=== PATIENT | female | born 1965 | race Caucasian/White ===

== ENCOUNTER 2017-04-05 18:21 | Emergency (ER) | payer OTHER ==
[~2017-04-05] VITALS: Ht 165.1 cm; Wt 95.3 kg
[~2017-04-05 18:21] MED LIST: AMLO5TAB PO; BENAZEPRIL HYDR40 MG PO; BENICAR40 MG PO; BENZONATATE200 MG PO; CARVEDILOL 25MG25 MG PO; CHEWABLE ASPIRI81 MG PO; CLONIDINE HCL0.2 MG PO; GUAIFENESIN DM118 ML PO; HYDROCHLOROTHIA25 M1 PO; KEFLEX 500MG.500 MG PO; MEDROL 4MG. DOSE4 MG PO; METOPROLOL25 MG PO; MINOCYCLINE 10100 MG PO; Meclizine25 MG PO; NAPROSYN 500MG500 MG PO; PERCOCET 5/3251 EACH PO; PROAIR HFA0.09 MG/AC IH; ROBAXIN-750750 MG PO; SIMVASTATIN40 MG PO; TAMIFLU 75MG CA75 MG PO; UNITHROID0.088 MG; ZITHROMAX Z PA250 MG PO; ZITHROMAX Z-PA250 M2 PO
--- NOTE | 2017-04-05 18:54 | Urgent Treatment Center Report ---
History of Present Issue Date/Time Seen by Provider 04/05/17 7083 Visit Reason Pt arrived:Walked Presenting Problem:TRIPPED AT WORK A COUPLE OF WEEKS AGO AND C/O PAIN IN THE KNEE THAT GOES DOWN INTO HER CALF Location if Accident: Onset of symptoms date/time:/ or onset unknown for:MEDICAL HX UNKNOWN Have you (or family members/close friends) recently traveled outside the [place]? N If Yes, where/when: Have you had exposure to infectious disease within the past month? TB? Other? Specify: Patient state that she was at work a couple of weeks ago when she tripped on grate at work and fell State that ever since she has been having pain in her right knee that radiates down leg into calf area. States that she has been taking over the counter Medication for it and states that today it is hurting worse and she talked to them at work and they told her to come and get checked out ALLERGIES Coded Allergies: Sulfa (Sulfonamide Antibiotics) (Mild, 12/22/15) hydrocodone (Mild, 12/22/15) Home Medications Active Scripts Azithromycin (Zithromycin (Z-ROBBIE) 250MG Tab) 250 MG PO DAILY #6 TAB Prov: 08/05/16 Methylprednisolone (Medrol Dose Robbie) 4 MG PO UD #1 ROBBIE Prov: 08/05/16 GUAIFENESIN/DEXTROMETHORPHAN (Tussin Dm Cough Syrup) 10 ML PO Q6HP PRN cough #120 SYR Prov: 08/05/16 Azithromycin (Zithromax) 250 MG PO DAILY #6 TAB Prov: 12/17/16 Methylprednisolone (Medrol Dose Robbie) 4 MG PO UD #1 ROBBIE Prov: 12/17/16 Oseltamivir Phosphate (Tamiflu 75MG Capsule) 75 MG PO BID #10 CAP Prov: 08/07/16 Albuterol Sulfate (Proair Hfa) 1 PUFF IH Q6HP PRN shortness of air #1 INH Prov: 08/07/16 Benzonatate 200 MG PO Q8HP PRN cough #30 SGL Prov: 08/07/16 Reported Medications Carvedilol (Carvedilol 25MG) 25 MG PO BID HYDROCHLOROTHIAZIDE (Hydrochlorothiazide) 25 MG PO DAILY Levothyroxine Sodium (Levothyroxine (88 Mcg)) 300 DAILY Aspirin (Aspirin, Chewable) 81 MG PO DAILY Clonidine Hcl 0.2 MG PO BID #60 Benazepril Hcl (Benazepril HCl) 40 MG PO DAILY #30 Amlodipine Besylate (Amlodipine) 5 MG PO DAILY #30 Simvastatin (Simvastatin 40MG Tab) 40 MG PO DAILY #30 History Medical History General CAD? No Angina: No IN: No Hypertension? Yes Hyperlipidemia? Yes CHF? No DVT? No PE? No COPD? No Asthma? No Anemia? No GERD? No Gastric ulcers? No GI Bleed? No Hernia? No Thyroid Problems? No Hypothyroidism? No CVA? No Seizures? No Diabetes? No Renal Insuffiency? No UTI? No Stones? No BPH? No GB Disease: No Nephritic Syndrome? No Asplenia? No Hepatitis? No Sickle Cell Disease? No Arthritis? No Migraines? No Cataracts? No Glaucoma? No MRSA? No HIV? No TB? No Anxiety? No Depression? No Cancer? No Immunization HX DT/Tetanus 1-4 Years Ago Surgical Hx Previous Surgery?Y HEART CATH 2006 HYSTERECTOMY Hernia Repair Social History Smoking Hx Smoker: Current Every Day Smoker Tobacco: Yes Type Cigarettes Packs/day 1 1/2 - 2 Packs Alcohol Alcohol: No Review of Systems All Other Systems Reviewed and Negative Physical Exam Vital Signs Vital Signs Date Time Temp Pulse Resp B/P Pulse O2 O2 Flow FiO2 Ox Delivery Rate 04/05 1833 98.3 72 16 184/91 99 General Appearance normal appearance, WD/WN, no apparent distress Ear, Nose, Throat hearing grossly normal, normal ENT inspection Respiratory Status Yes: trachea midline, chest symmetrical, non tender chest. No: respiratory distress. Lung Sounds bilateral: normal breath sounds, lungs clear. Cardiovascular normal exam, regular rate/rhythm Extremities swelling, Pain and mild swelling noted in right knee area after tripping and falling 2 weeks go, no discoloration noted, good pulses, good cap refill Neurologic alert, normal exam, oriented x 3 Medical Decision Making LABS/Meds/Orders Pt receiving controlled substance in ED? No Results/Orders Orders Procedure Date/time Status [facility] STABILIZE JOINT/AREA 04/05 1938 Active XRAY/CT/US XRAY/CT/US XRAY knee XR interpretation by reviewed by me Xray Results no fracture seen Departure Departure Time of Disposition 1938 Disposition DC Home or Self Care(routine) Clinical Impression Primary Impression: Knee sprain Qualifiers: Encounter type: initial encounter Involved ligament of knee: unspecified ligament Laterality: right Qualified Code: S83.91XA - Sprain of unspecified site of right knee, initial encounter Condition STABLE Referrals RAMA CORNEJO (Family) Parker SIMON,Marcus BLACKWELL MD, EUGENIO RAYA Patient Instructions DI for Knee Pain Additional Instructions *RICE, Rest the extremity, Ice 15-20 minutes 3-4 times daily, Compress- wear the guzman wrap as discussed as much as possible to help reduce swelling and pain, Elevate the extremity when at rest *Guzman wrap is for support and help control swelling, use it except in the shower. Be sure that is not to tight but not to loose either *Elevate when resting *Ibuprofen 600-800mg every 6-8 hours as needed for pain an inflammation. If need something more can take Tylenol in between doses of Ibuprofen to help Immediately follow up for new or worsening of symptoms, or no noticeable improvement over the next 3-5 days Follow up with Orthopedics if pain persists Discharge Counseling Counseled pt/family regarding diagnosis, home care, follow up needs Prescriptions Current Visit Scripts Etodolac (Etodolac 200MG CAP) 200 MG PO Q6HP PRN pain #20 CAP at 1941
--- NOTE | 2017-04-05 19:33 | RADIOLOGY REPORT PS360 ---
KNEE-3 VIEWS-RT HISTORY: right knee pain ORDERING PHYSICIAN: DENNIS WEBSTER APRN PATIENT AGE: 51 years COMPARISON: None FINDINGS: No fracture or dislocation. No lytic or blastic change. Normal mineralization. Mild osteoarthritic changes are present involving the medial compartment and patellofemoral joint. No other significant findings IMPRESSION: Mild osteoarthritis
[2017-04-05] MEDS ORDERED: ETODOLAC200 MG PO (19:40)
[2017-04-05 19:42] VITALS: BP 184/91
== END 2017-04-05 19:45 | disposition home or self-care (01) ==
LOC: UTC 18:21
DX: S83.91XA Sprain of unspecified site of right knee, initial encounter (principal); W01.0XXA Fall on same level from slipping, tripping and stumbling without subsequent striking against object, initial encounter; Y92.69 Other specified industrial and construction area as the place of occurrence of the external cause; Y99.0 Civilian activity done for income or pay; I10 Essential (primary) hypertension; E78.5 Hyperlipidemia, unspecified; F17.210 Nicotine dependence, cigarettes, uncomplicated; Z88.2 Allergy status to sulfonamides; Z88.6 Allergy status to analgesic agent